=== PATIENT | male | born 1970 | race Caucasian/White ===

== ENCOUNTER 2017-05-15 09:42 | Emergency (ER) | payer OTHER, BC ==
[~2017-05-15] VITALS: Ht 177.8 cm; Wt 108.5 kg
[~2017-05-15 09:42] MED LIST: CMD10 PO; GLC500 PO; SIMV80TA2 PO
[2017-05-15 09:48] VITALS: TEMP 36.7; Ht 177.8 cm; Wt 108.5 kg
[2017-05-15 10:11] LABS: BASO % 0.6 %; BASO ABS # 0.03 K/uL (0-0.2); COMPLETE YES; IG% 0.2 %; LYMPH % 34.4 %; LYMPH ABS # 1.83 K/uL (1.2-3.4); MEAN CELL VOLUME 89.3 fL (80-100); MEAN CORPUSCULAR HEMOGLOBIN 30.4 pg (25-34); MEAN PLATELET VOLUME 10.5 fL (7.4-10.4); NEUT % 52.8 %; PLATELET COUNT 198 K/uL (130-400); RED BLOOD COUNT 5.04 M/uL (4.7-6.1); WHITE BLOOD COUNT 5.32 K/uL (4.8-10.8)
[2017-05-15 10:19] LABS: POINT OF CARE TROPONIN I < 0.030 ng/ml (0-0.045)
[2017-05-15 10:22] LABS: INR 2.3 (0.9-1.1); PARTIAL THROMBOPLASTIN RATIO 1.2
[2017-05-15 10:27] LABS: BUN/CREATININE RATIO 15.3 (10-20); CALCIUM 8.6 mg/dl (8.5-10.1); CREATININE 0.88 mg/dl (0.60-1.40); MAGNESIUM 1.9 mg/dl (1.8-2.4); POTASSIUM 4.4 mmol/L (3.5-5.1)
[2017-05-15] MEDS ORDERED: WARF-237 PO (10:27)
[2017-05-15] MEDS ORDERED: METF-384 PO (10:27)
[2017-05-15] MEDS ORDERED: ATOR-26 PO (10:27)
[2017-05-15 10:32] LABS: ALB/GLOB RATIO 1.3 (0.9-2); CKMB/CK RATIO 0.7 (0-3.0)
--- NOTE | 2017-05-15 11:15 | EMERGENCY ROOM VISIT NOTE ---
History First contact with patient: 09:52 Chief Complaint: CARDIAC ASSESSMENT Stated Complaint: CHEST PAIN Nursing Triage Summary: patient states he woke up this morning with pain in upper chest into left shoulder. hx of blood clots. "pain with the clots was in the back. not like this pain" denies sob History of Present Illness The patient is a 46 year old male who presents to the Emergency Room via private vehicle accompanied by female with complaints of "chest pain". The patient states that he has a history of pulmonary embolism, and awoke this morning around 4:35 AM with left anterior chest pain that radiated to his left shoulder. He denies any trauma or injury to the region. He notes the pain comes and goes. He characterizes the pain as dull in nature, and rates it as a 7/10. He does have a history of diabetes, and is currently on Coumadin/ warfarin. His last INR was 1.6 on Thursday. He denies any shortness of breath, abdominal pain, history of heart troubles. Review of Systems A complete 10-point Review of Systems was discussed with the patient, with pertinent positives and negatives listed in the History of Present Illness. All remaining Review of Systems questions can be considered negative unless otherwise specified. Past Medical/Surgical History Diabetes, pulmonary embolism. Social History Smoking Status: Former Smoker Patient lives at home with family. Current/Historical Medications Scheduled Atorvastatin (Lipitor), 80 MG PO DAILY Metformin Hcl (Glucophage), 1,000 MG PO BID Warfarin Sod (Coumadin), 1 TAB PO DAILY Physical Exam Vital Signs Date Time Temp Pulse Resp B/P (MAP) Pulse Ox O2 Delivery O2 Flow Rate FiO2 05/15/17 13:05 75 16 131/92 99 05/15/17 12:50 72 05/15/17 11:32 73 16 142/83 96 Room Air 05/15/17 11:00 74 16 125/81 97 Room Air 05/15/17 10:08 84 05/15/17 10:00 97 Room Air 05/15/17 09:48 36.7 81 18 150/91 97 Room Air Physical Exam VITAL SIGNS - Vital signs and nursing notes were reviewed. Patient is afebrile , hypertensive at 150/91, non-tachycardic and is saturating well on room air 97% . GENERAL -46-year-old male appearing his stated age who is in no acute distress. Communicates well with provider and answers questions appropriately. SKIN - Without rashes. Skin overlying the left anterior chest is unremarkable. HEAD - NC/AT. NECK -no abnormalities to inspection. LUNGS - Chest wall symmetric without accessory muscle use, intercostals retractions, or central cyanosis. Normal vesicular breath sounds CTA B/L. No wheezes, rales, or rhonchi appreciated. CARDIAC - RRR with S1/S2. No murmur, rubs, or gallops appreciated. ABDOMEN - Abdominal contour without pulsations or visible masses. BS normoactive all four quadrants. No tenderness, palpable masses, hepatosplenomegaly, or ascites noted. Medical Decision & Procedures ER Provider Diagnostic Interpretation: CHEST ONE VIEW PORTABLE CLINICAL HISTORY: 46 years-old Male presenting with Chest pain. TECHNIQUE: Portable upright AP view of the chest was obtained. COMPARISON: 08/25/[address] from 2008. FINDINGS: Cardiomediastinal silhouette normal. Lungs and pleural spaces clear. Osseous structures and upper abdomen normal. IMPRESSION: 1. No acute cardiopulmonary disease. Electronically signed by: Jeffry Silva M.D. 05/15/2017 11:31 AM Dictated Date/Time: 05/15/2017 11:29 AM Laboratory Results 05/15/17 09:56 Red Blood Count 5.04, Mean Corpuscular Volume 89.3, Mean Corpuscular Hemoglobin 30.4, Mean Corpuscular Hemoglobin Concent 34.0, Mean Platelet Volume 10.5, Neutrophils (%) (Auto) 52.8, Lymphocytes (%) (Auto) 34.4, Monocytes (%) (Auto) 9.0, Eosinophils (%) (Auto) 3.0, Basophils (%) (Auto) 0.6, Neutrophils # (Auto) 2.81, Lymphocytes # (Auto) 1.83, Monocytes # (Auto) 0.48, Eosinophils # (Auto) 0.16, Basophils # (Auto) 0.03 05/15/17 09:56 Test 05/15/17 09:56 05/15/17 10:00 05/15/17 12:18 White Blood Count 5.32 K/uL (4.8-10.8) Red Blood Count 5.04 M/uL (4.7-6.1) Hemoglobin 15.3 g/dL (14.0-18.0) Hematocrit 45.0 % (42-52) Mean Corpuscular Volume 89.3 fL (80-100) Mean Corpuscular Hemoglobin 30.4 pg (25-34) Mean Corpuscular Hemoglobin Concent 34.0 g/dl (32-36) Platelet Count 198 K/uL (130-400) Mean Platelet Volume 10.5 fL (7.4-10.4) Neutrophils (%) (Auto) 52.8 % Lymphocytes (%) (Auto) 34.4 % Monocytes (%) (Auto) 9.0 % Eosinophils (%) (Auto) 3.0 % Basophils (%) (Auto) 0.6 % Neutrophils # (Auto) 2.81 K/uL (1.4-6.5) Lymphocytes # (Auto) 1.83 K/uL (1.2-3.4) Monocytes # (Auto) 0.48 K/uL (0.11-0.59) Eosinophils # (Auto) 0.16 K/uL (0-0.5) Basophils # (Auto) 0.03 K/uL (0-0.2) RDW Standard Deviation 39.8 fL (36.4-46.3) RDW Coefficient of Variation 12.3 % (11.5-14.5) Immature Granulocyte % (Auto) 0.2 % Immature Granulocyte # (Auto) 0.01 K/uL (0.00-0.02) Prothrombin Time 26.0 SECONDS (9.0-12.0) Prothromb Time International Ratio 2.3 (0.9-1.1) Activated Partial Thromboplast Time 30.8 SECONDS (21.0-31.0) Partial Thromboplastin Ratio 1.2 Anion Gap 3.0 mmol/L (3-11) Est Creatinine Clear Calc Drug Dose 130.7 ml/min Estimated GFR () 120.2 Estimated GFR (Non- 103.7 BUN/Creatinine Ratio 15.3 (10-20) Calcium Level 8.6 mg/dl (8.5-10.1) Magnesium Level 1.9 mg/dl (1.8-2.4) Total Bilirubin 0.4 mg/dl (0.2-1) Aspartate Amino Transf (AST/SGOT) 16 U/L (15-37) Alanine Aminotransferase (ALT/SGPT) 36 U/L (12-78) Alkaline Phosphatase 65 U/L (45-117) Total Creatine Kinase 174 U/L (39-308) Creatine Kinase MB 1.2 ng/ml (0.5-3.6) Creatine Kinase MB Ratio 0.7 (0-3.0) Total Protein 7.0 gm/dl (6.4-8.2) Albumin 3.9 gm/dl (3.4-5.0) Globulin 3.1 gm/dl (2.5-4.0) Albumin/Globulin Ratio 1.3 (0.9-2) Lipase 187 U/L (73-393) Lyme Disease IgG Antibody NEG (NEG) Lyme Disease IgM Antibody NEG (NEG) Bedside D-Dimer 109 ng/mlFEU (0-450) Bedside Troponin I < 0.030 ng/ml (0-0.045) Medical Decision Patient was seen and evaluated as above. After obtaining a thorough history and physical examination IV access was initiated, and the above workup was performed. Bedside EKG reveals normal sinus rhythm, rate of 81 bpm. There is no ectopy or ischemic changes identified on this EKG. This was compared to EKG obtained in October 2008, and no significant change was found. Troponin was negative 2. CBC reveals no leukocytosis or anemia. INR is 2.3. D-dimer is negative. CMP reveals a slightly high chloride at 108, glucose at 143. Lyme testing is negative. The case was discussed with my attending. Patient declined any pain medication throughout his stay. At this time I believe that the likelihood that the patient is experiencing ACS is low, however do believe that follow-up with cardiology is important given his underlying comorbidity of diabetes. He was offered inpatient management via admission versus outpatient and patient noted that he would like to go home. I do believe this is reasonable. He was educated upon worrisome symptoms which to return, had questions about discharge, and was discharged home in good condition. I suspect his pain is likely that either from reflux, or muscle strain. In the evaluation and treatment of this patient following differential diagnoses were entertained: ID, PE, ACS, GERD, muscle strain, costochondritis, among others. Medication Reconcilliation Current Medication List: was personally reviewed by me Blood Pressure Screening Patient's blood pressure: Elevated blood pressure Blood pressure disposition: Elevated BP felt to be situational, Referred to PCP Impression Primary Impression: Chest pain Departure Information Dispostion Home / Self-Care Condition GOOD Referrals Storm, P Min, M.D. (MEDICAL) (PCP) Charbel Wallace, DO Patient Instructions My [facility] Additional Instructions You have been treated in the Emergency Department your left chest and left shoulder Pain. Laboratory results and imaging studies have ruled out any emergent causes for your chest pain which would warrant admission or surgery. For pain control, you can use the following [id number] medicines (if >12 yo): - Regular strength (325mg/tab) Tylenol (acetaminophen) 2 tabs every 4-6 hours as needed. Do not exceed 12 tablets in a 24 hour period. Avoid taking more than 3 grams (3000 mg) of Tylenol per day. This includes any other sources of acetaminophen you may take on a regular basis. Drink plenty of water and stay well hydrated. As with any trip to the Emergency Department, you should follow-up with your Primary Care Provider from today's visit. Please also follow-up with cardiology, Dr. Wallace, number provided above. Please return the emergency department with any new/concerning symptoms.
--- NOTE | 2017-05-15 11:33 | DIAGNOSTIC IMAGING REPORT ---
CHEST ONE VIEW PORTABLE CLINICAL HISTORY: 46 years-old Male presenting with Chest pain. TECHNIQUE: Portable upright AP view of the chest was obtained. COMPARISON: 08/25/[address] from 2008. FINDINGS: Cardiomediastinal silhouette normal. Lungs and pleural spaces clear. Osseous structures and upper abdomen normal. IMPRESSION: 1. No acute cardiopulmonary disease. Electronically signed by: Jeffry Silva M.D. 05/15/2017 11:31 AM Dictated Date/Time: 05/15/2017 11:29 AM
[2017-05-15 11:43] LABS: LYME DISEASE AB IGG NEG (NEG); LYME DISEASE AB IGM NEG (NEG)
[2017-05-15 13:05] VITALS: BP 131/92; PULSE 75; O2SAT 99
== END 2017-05-15 13:06 | disposition home or self-care (01) ==
LOC: C.EDB 09:45 → C.EDA 13:06
DX: R07.9 Chest pain, unspecified (principal); Z86.711 Personal history of pulmonary embolism; E11.9 Type 2 diabetes mellitus without complications; R03.0 Elevated blood-pressure reading, without diagnosis of hypertension; Z79.01 Long term (current) use of anticoagulants; Z87.891 Personal history of nicotine dependence; Z79.899 Other long term (current) drug therapy

== ENCOUNTER 2017-06-05 12:17 | Emergency (ER) | payer OTHER, BC ==
[~2017-06-05] VITALS: Ht 177.8 cm; Wt 110.8 kg
[~2017-06-05 12:17] MED LIST changes: +ATOR-26 PO; -CMD10 PO; -GLC500 PO; +METF-384 PO; -SIMV80TA2 PO; +WARF-237 PO
[2017-06-05 12:23] VITALS: TEMP 36.6; Ht 177.8 cm; Wt 110.8 kg
--- NOTE | 2017-06-05 13:07 | DIAGNOSTIC IMAGING REPORT ---
RIGHT FINGER(S) MIN 2 VIEWS ROUTINE HISTORY: 46 years-old Male R/O BONE INVOLVEMENT R SECOND DIGIT Right acute right second digit injury. COMPARISON: None available TECHNIQUE: 3 views of the right second digit FINDINGS: There is moderate soft tissue swelling of the second digit. Evaluation of fine bony detail is limited secondary to overlying bandage material. There appears to be a laceration involving the volar aspect of the distal digit at the level of the distal phalanx. There is no acute fracture, dislocation or significant degenerative changes. Negative for radiopaque foreign body. IMPRESSION: Soft tissue swelling and laceration of the distal second digit without fracture, dislocation or radiopaque foreign body. The above report was generated using voice recognition software. It may contain grammatical, syntax or spelling errors. Electronically signed by: Etienne Rodriguez M.D. 06/05/2017 1:06 PM Dictated Date/Time: 06/05/2017 1:05 PM
[2017-06-05] MEDS ORDERED: ACETAMINOPHEN 500 MG TAB PO STA (13:27)
[2017-06-05] MEDS ORDERED: BUPIVACAINE 0.5 % 5 MG/1 ML MPF 30ML VIAL INFIL ONE (13:30)
[2017-06-05] MEDS ORDERED: DIPHTHERIA/TETANUS/PERTUSSIS 0.5 ML SYR/VIAL IM. ONE (13:30)
[2017-06-05] MEDS ORDERED: XYLOCAINE 1%/SOD BICARB 20 ML VIAL INFIL ONE (13:30)
[2017-06-05] MEDS ORDERED: CEPH500C PO (15:08)
--- NOTE | 2017-06-05 15:09 | EMERGENCY ROOM VISIT NOTE ---
ED Visit Note First contact with patient: 13:05 CHIEF COMPLAINT: Right second finger laceration at work today HISTORY OF PRESENT ILLNESS: Patient is a [id number]-kxnyctkh 46-year-old white male who presents emergency department for evaluation of a laceration to the right second finger. He states that he got it caught under a chain, causing the laceration described below. He was seen at [facility] occupational health who cleansed with saline and wrapped it, and sent him to the emergency department. He reports a throbbing, 8/10 pain. 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 His INR was 2.3 on 05/15. Denies weakness or numbness of the finger. REVIEW OF SYSTEMS: Review of systems as per HPI. All other systems reviewed were negative. At least 6 systems reviewed. PMH: Electronic medical records are reviewed and summarized as above/below. See Problem List. His tetanus is not up-to-date. SOCIAL HISTORY: Patient lives at home. Non-smoker, occasional alcohol use. PHYSICAL EXAM: Vital Signs: Reviewed Nurse's notes. There is a 3 cm long L- shaped laceration on the palmar aspect of the right second finger pad. There is no nail or nailbed involvement. The edges gape apart with traction. There is no foreign material in the wound and it looks clean. There is no bleeding. No deep structures such as tendons or nerves are seen in the base of the wound. The patient is able to flex at the DIP without difficulty. EMERGENCY DEPARTMENT COURSE: X-rays of the finger were obtained and negative for acute fracture. Tetanus was updated. Patient was medicated with Tylenol for discomfort. Using sterile technique, the finger was prepped with Betadine and draped. A digital block was performed using a 2:1 solution of 1% plain buffered lidocaine and 0.5% Sensorcaine. When adequate anesthesia was obtained , the finger was scrubbed thoroughly with Betadine, laceration was irrigated copiously with normal saline solution, then repaired using 5-0 nylon sutures, 11 sutures were used. Finger was cleansed and dressing was placed. He will be put on Keflex prophylactically to minimize risk of infection. There is no evidence for tenderness injury, no open fracture or foreign body. RIGHT FINGER(S) MIN 2 VIEWS ROUTINE HISTORY: 46 years-old Male R/O BONE INVOLVEMENT R SECOND DIGIT Right acute right second digit injury. COMPARISON: None available TECHNIQUE: 3 views of the right second digit FINDINGS: There is moderate soft tissue swelling of the second digit. Evaluation of fine bony detail is limited secondary to overlying bandage material. There appears to be a laceration involving the volar aspect of the distal digit at the level of the distal phalanx. There is no acute fracture, dislocation or significant degenerative changes. Negative for radiopaque foreign body. IMPRESSION: Soft tissue swelling and laceration of the distal second digit without fracture, dislocation or radiopaque foreign body. 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 (6) Personal History Of Pulmonary Embolism Status: Chronic (7) Type 2 Diabetes Mellitus Without Complications Status: Chronic Current/Historical Medications Scheduled Atorvastatin (Lipitor), 80 MG PO DAILY Cephalexin Monohydrate (Keflex), 500 MG PO TID Metformin Hcl (Glucophage), 1,000 MG PO BID Warfarin Sod (Coumadin), 10 MG PO QPM Allergies Coded Allergies: No Known Allergies (Verified , 06/05/17) Vital Signs Date Time Temp Pulse Resp B/P (MAP) Pulse Ox O2 Delivery O2 Flow Rate FiO2 06/05/17 15:13 78 18 138/80 98 Room Air 06/05/17 14:00 78 18 135/79 97 Room Air 06/05/17 12:23 36.6 92 18 154/98 96 Room Air Medications Administered Medications (Trade) Dose Ordered Sig/Mahsa Route Start Time Stop Time Status Last Admin Dose Admin Diphtheria/ Pertussis/Tetanus Vacc (Adacel Inj) 0.5 ml ONCE ONCE IM. 06/05/17 13:30 06/05/17 13:31 DC 06/05/17 13:41 0.5 ML Acetaminophen (Tylenol Tab) 1,000 mg NOW STAT PO 06/05/17 13:27 06/05/17 13:28 DC 06/05/17 13:39 1,000 MG Departure Information Impression Primary Impression: Laceration of finger Additional Impression: Work related injury Prescriptions Cephalexin Monohydrate (Keflex) 500 Mg Cap 500 MG PO TID, #15 CAP Prov: Costlow, Marlen C.,PA 06/05/17 Referrals Nancy Storm M.D. (MEDICAL) (PCP) Patient Instructions My [facility] Additional Instructions Keep wound clean and dry. Do not allow any crusting or dried blood to accumulate on sutures. Clean gently with mild soap and water. Use an antibiotic ointment for 3-4 days, then let wound dry. Suture removal in 12-14 days. Return sooner for any signs of infection (increasing redness, swelling, drainage). Ice and elevate for swelling and pain. Tylenol 1000 mg every 6 hrs for pain. Cephalexin(Keflex) 500mg: Take one pill 3 times daily for 5 days to prevent infection. All antibiotics can cause diarrhea. If this occurs and you feel worse or it does not resolve in 1-2 days follow up with your doctor or return to the Emergency Department as this could be signs of serious underlying problems. Any medication can cause an allergic reaction, stop the pills immediately and return to the ER for rash, hives, breathing difficulties, or swelling. Follow-up with [facility] or return to the emergency department for suture removal. Problem Qualifiers Primary Impression: Laceration of finger Encounter type: initial encounter Finger: index finger Damage to nail status: without damage Foreign body presence: without foreign body Laterality: left Qualified Codes: S61.211A - Laceration without foreign body of left index finger without damage to nail, initial encounter
[2017-06-05 15:13] VITALS: BP 138/80; PULSE 78; O2SAT 98
== END 2017-06-05 15:24 | disposition home or self-care (01) ==
LOC: C.EDB 12:18 → C.EDD 15:24
DX: S61.210A Laceration without foreign body of right index finger without damage to nail, initial encounter (principal); W23.0XXA Caught, crushed, jammed, or pinched between moving objects, initial encounter; Y92.89 Other specified places as the place of occurrence of the external cause; Y99.0 Civilian activity done for income or pay; Z23 Encounter for immunization; E11.9 Type 2 diabetes mellitus without complications; E78.5 Hyperlipidemia, unspecified; Z86.711 Personal history of pulmonary embolism; Z86.718 Personal history of other venous thrombosis and embolism; Z79.01 Long term (current) use of anticoagulants; Z79.84 Long term (current) use of oral hypoglycemic drugs; Z79.899 Other long term (current) drug therapy